=== PATIENT | female | born 1955 | race Caucasian/White ===

== ENCOUNTER 2022-03-03 16:47 | Emergency (ER) | payer OTHER, SELFPAY ==
[2022-03-03 17:21] VITALS: BP 155/96; PULSE 100; RESP 16; TEMP 36.6; O2SAT 97; BMI 23.0
[2022-03-03] MEDS: PROPARACAINE 0.5% OPHTH SOL 1 DROPS EYE-RIGHT (19:17)
[2022-03-03] MEDS: FLUORESCEIN 1 MG STRIP EYE-RIGHT (19:18)
--- NOTE | 2022-03-03 19:25 | ED_ITS ---
HPI - Eye Problem <Seth Huddleston PA-C - Last Filed: 03/03/22 19:49> General Chief complaint: Eye Problems Stated complaint: Foreign substance in right eye Time Seen by Provider: 03/03/22 19:12 History of Present Illness HPI Narrative: Patient is a 67-year-old female complaining of pain in the right eye. [place] piece of dust or dirt entered her right eye. She tried to flush it out with some sterile saline drops but was continuing to have a sense of a foreign body in the upper part of her eye in within the eyelid. She denies any changes in her vision she does not wear contact lenses. No previous issue of eye problems reported. No reported fever Review of Systems <Seth Huddleston PA-C - Last Filed: 03/03/22 19:49> Review of Systems ROS Unobtainable: All systems reviewed & are unremarkable except as noted in HPI and below Constitutional Constitutional: Denies chills, Denies fatigue, Denies fever(s), Denies frequent falls, Denies lethargy and Denies weakness Eyes Eyes: Denies change in vision, Denies eye discharge, Reports irritation and Denies loss of vision ENT Ears, Nose, Mouth, and Throat: Denies change in voice, Denies dizziness, Denies neck pain, Denies sore throat and Denies throat swelling Cardiovascular Cardiovascular: Denies chest pain, Denies irregular heart rhythm, Denies lightheadedness, Denies palpitations, Denies dyspnea, Denies dyspnea on exertion and Denies orthopnea Respiratory Respiratory: Denies cough, Denies dyspnea, Denies dyspnea on exertion and Denies wheezing Gastrointestinal Gastrointestinal: Denies abdominal pain, Denies change in bowel habits, Denies diarrhea, Denies nausea and Denies vomiting Musculoskeletal Musculoskeletal: Denies back pain, Denies muscle weakness, Denies neck pain, Den ies numbness and Denies tingling Integumentary/Breasts Skin/Breast: Denies pruritus, Denies erythema, Denies rash and Denies wounds Neurologic Neurologic: Denies behavioral changes, Denies confusion, Denies dizziness, Denies frequent falls, Denies loss of vision, Denies numbness, Denies tingling and Denies weakness Psychiatric Psychiatric: Denies anxiety, Denies behavioral changes, Denies confusion, Denies depression, Denies homicidal ideation and Denies suicidal ideation Endocrine Endocrine: Denies fatigue, Denies flushing and Denies palpitations Hematologic/Lymphatic Hematologic/Lymphatic: Denies easy bruising Allergic/Immunologic Allergic/Immunologic: Denies urticaria, Denies throat swelling and Denies wheezing Exam <RODRÍGUEZ Morales Last Filed: 03/03/22 19:49> Initial Vital Signs Initial Vital Signs: Vital Signs Temperature 97.9 F 03/03/22 17:21 Pulse Rate 100 H 03/03/22 17:21 Respiratory Rate 16 03/03/22 17:21 Blood Pressure 155/96 H 03/03/22 17:21 Pulse Oximetry 97 03/03/22 17:21 Const General: cooperative, healthy appearing, comfortable and well developed Nutritional Appearance: average body habitus Orientation: Orientation [facility] Head: normal to inspection and normocephalic Ears: hearing grossly normal bilaterally and external ears normal Nose: external nose normal and nares normal Face and sinus: normal facial exam and sinuses nontender Mouth: oral mucosae normal Eyes General: appearance normal, both eyes and all related structures Visual Somers: normal visual somers by confrontation Alignment and Position: alignment normal and position normal Periorbital: periorbital findings normal Eyelids: eyelids normal Conjunctivae: conjunctivae normal Sclera: sclerae normal Cornea: corneas normal and fluorescein used Pupils: PERRL EOM: EOM intact bilaterally <Johana Feliz DO - Last Filed: 03/04/22 03:21> Initial Vital Signs Initial Vital Signs: Vital Signs Temperature 97.9 F 03/03/22 17:21 Pulse Rate 100 H 03/03/22 17:21 Respiratory Rate 16 03/03/22 17:21 Blood Pressure 155/96 H 03/03/22 17:21 Pulse Oximetry 97 03/03/22 17:21 Procedures <RODRÍGUEZ Morales Last Filed: 03/03/22 19:49> Foreign Body EYE Time of procedure: 19:20 Time Out performed: No Location: eye (R) Topical anesthetic used: proparacaine Evidence of corneal penetration: No Technique: irrigation Procedure performed under: direct visualization with magnification Post-procedure medication: topical anesthetic Patient tolerated procedure: well and no complications Course <RODRÍGUEZ Morales Last Filed: 03/03/22 19:49> Orders Ordered: Discontinued Medications Fluorescein Sodium (Fluorescein 1 Mg Strip) 1 mg EYE-RIGHT NOW ONE Stop: 03/03/22 17:39 Last Admin: 03/03/22 19:20 Dose: Not Given Documented by: BTONER Fluorescein Sodium (Fluorescein 1 Mg Strip) 1 mg EYE-RIGHT NOW ONE Stop: 03/03/22 19:17 Last Admin: 03/03/22 19:18 Dose: 1 mg Documented by: BTONER Proparacaine HCl (Proparacaine 0.5% Ophth Yvette) 1 drops EYE-RIGHT NOW ONE Stop: 03/03/22 17:39 Last Admin: 03/03/22 19:19 Dose: Not Given Documented by: BTONER Proparacaine HCl (Proparacaine 0.5% Ophth Yvette) 1 drops EYE-RIGHT NOW ONE Stop: 03/03/22 19:17 Last Admin: 03/03/22 19:17 Dose: 1 drop Documented by: BTONER Vital Signs Vital signs: Vital Signs - 8 hr 03/03/22 17:21 Temperature 97.9 F Pulse Rate 100 H Respiratory Rate 16 Blood Pressure 155/96 H Pulse Oximetry 97 <Johana Feliz, DO - Last Filed: 03/04/22 03:21> Orders Ordered: Discontinued Medications Fluorescein Sodium (Fluorescein 1 Mg Strip) 1 mg EYE-RIGHT NOW ONE Stop: 03/03/22 17:39 Last Admin: 03/03/22 19:20 Dose: Not Given Documented by: BTONER Fluorescein Sodium (Fluorescein 1 Mg Strip) 1 mg EYE-RIGHT NOW ONE Stop: 03/03/22 19:17 Last Admin: 03/03/22 19:18 Dose: 1 mg Documented by: BTONER Proparacaine HCl (Proparacaine 0.5% Ophth Yvette) 1 drops EYE-RIGHT NOW ONE Stop: 03/03/22 17:39 Last Admin: 03/03/22 19:19 Dose: Not Given Documented by: BTONER Proparacaine HCl (Proparacaine 0.5% Ophth Yvette) 1 drops EYE-RIGHT NOW ONE Stop: 03/03/22 19:17 Last Admin: 03/03/22 19:17 Dose: 1 drop Documented by: BTONER Vital Signs Vital signs: Vital Signs - 8 hr 03/03/22 17:21 Temperature 97.9 F Pulse Rate 100 H Respiratory Rate 16 Blood Pressure 155/96 H Pulse Oximetry 97 MDM - Eye Problem <Seth Huddleston PA-C - Last Filed: 03/03/22 19:49> Differential Diagnosis Differential diagnosis: Likely other (Foreign body to the eye) MDM Narrative Medical decision making narrative: Patient was evaluated today for foreign body in the right eye. Fluorescein did not identify any corneal abrasion. I did visual inspection did not identify any foreign body in the upper eyelid or the lower eyelid saw no evidence of any conjunctivitis or irritation or discharge in the eye. Patient's right eye was flushed with 100 cc of saline patient tolerated well and we will discharge patient home. I advised her that if she has continued complaints that she should follow up with Ophthalmology tomorrow to have further evaluation. She was agreeable patient will be discharged home. Discharge Plan Departure Patient Disposition: Home Clinical Impression: Foreign body of external eye, right Instructions: How to Get a Foreign Body Out of Your Eye Activity Restrictions/Additional Instructions: He was seen today for a foreign body of the right eye. I did I saw no evidence of a corneal abrasion noted I support any conjunctivitis or signs of infection. I am encouraged that you have no changes in her vision or no other complaints. The [place] lens with the saline flush should be effective a removing any foreign body within the eye. If you continue to have problems I would recommend you follow-up with ophthalmology tomorrow to have further evaluation. You can return to the ED if you have any further complaints or issues or changes in her vision. Thank you for the opportunity to care for you today. <Johana Feliz DO - Last Filed: 03/04/22 03:21> [facility] ED Attending Richardature Attestation: I was immediately available in the department for consultation. Documentation has been reviewed. I agree with assessment and plan.
== END 2022-03-03 20:00 | disposition home or self-care (01) ==
PROVIDERS: Emergency Provider Physician Assistant
DX: T15.91XA Foreign body on external eye, part unspecified, right eye, initial encounter (principal); X58.XXXA Exposure to other specified factors, initial encounter; Y93.01 Activity, walking, marching and hiking; Y92.832 Beach as the place of occurrence of the external cause
CPT/HCPCS: 99282; 99284